=== PATIENT | male | born 1955 | race Caucasian/White ===

== ENCOUNTER 2021-10-20 06:12 | Inpatient (IN) | payer MEDICARE, BC ==
[~2021-10-20] VITALS: Ht 185.4 cm; Wt 91.7 kg
[2021-10-20] VITALS (8 sets, daily range): BP systolic 135–178; BP diastolic 50–68
[~2021-10-20 06:12] MED LIST: AMLO10TA PO; AMLO25TA PO; CRES10TA PO; LISI20TA33 PO; LISI40TA4 PO; PANT20TA6 PO; RAMI1CAP24 PO; TOUJ1.2I SC; TOUJ300I2 SC; [UNRECOGNIZED DRUG - CODE] PO
[2021-10-20] MEDS ORDERED: LR 1,000 ML IV SCH ×2 (06:45→12:25)
[2021-10-20] MEDS ORDERED: ceFAZolin SOD 2 GM in IV 1 EA IV ONE (07:00)
[2021-10-20] MEDS ORDERED: BUPIVACAINE HCL 0.25% 30ML VIAL As Ordered ONE (07:13)
[2021-10-20] MEDS ORDERED: LIDOCAINE 1% SDV 30ML VIAL As Ordered ONE (07:13)
[2021-10-20] MEDS ORDERED: DEXTROSE 50% 50 ML SYRINGE IV PRN (07:30)
[2021-10-20] MEDS ORDERED: ONDANSETRON 4MG 2ML VIAL IV PRN ×2 (07:30→12:25)
[2021-10-20] MEDS ORDERED: ACETAMINOPHEN TAB 650MG DOSE (2X325MG) PO PRN (07:30)
[2021-10-20] MEDS: INSULIN LISPRO (NovoLOG) PER UNIT SC SCH ×3 (07:30→18:28)
[2021-10-20] MEDS ORDERED: GLUCAGON INJ 1MG VIAL SC PRN (07:30)
[2021-10-20] MEDS ORDERED: PERCOCET 5MG/325MG TAB PO PRN (07:30)
[2021-10-20] MEDS ORDERED: GLUCOSE 4GM CHEW TABLET PO PRN (07:30)
[2021-10-20] MEDS ORDERED: HEPARIN SOD (PORCINE) 5000UNITS/ML 1ML VIAL/SYRINGE As Ordered ONE (07:37)
[2021-10-20] MEDS ORDERED: LIDOCAINE 2% INJ 100 MG/5 ML SYRINGE As Ordered ONE (08:08)
[2021-10-20] MEDS ORDERED: ROCURONIUM BROMIDE 50 MG/5 ML VIAL As Ordered ONE ×2 (08:08→08:34)
[2021-10-20] MEDS ORDERED: ONDANSETRON 4MG 2ML VIAL As Ordered ONE (08:08)
[2021-10-20] MEDS ORDERED: MIDAZOLAM INJ 2MG/2ML VIAL (J2250 PER 1MG) As Ordered ONE (08:08)
[2021-10-20] MEDS ORDERED: propofoL 200 MG/20 ML VIAL As Ordered ONE (08:08)
[2021-10-20] MEDS ORDERED: fentaNYL 100 MCG/2 ML INJECTION As Ordered ONE ×2 (08:09→12:13)
[2021-10-20] MEDS ORDERED: HYDROmorphone HCL 2MG/ML 1ML VIAL As Ordered ONE (08:09)
[2021-10-20] MEDS ORDERED: SUGAMMADEX SODIUM 500 MG/5 ML VIAL (BRIDION) As Ordered ONE (08:14)
[2021-10-20] MEDS ORDERED: ACETAMINOPHEN 1000MG 100ML IV BTL (OFIRMEV) (J0131 PER 10MG) As Ordered ONE (08:15)
[2021-10-20] MEDS ORDERED: hydrALAZINE 20MG/ML 1ML VIAL (J0360 PER 20MG) As Ordered ONE (09:16)
[2021-10-20] MEDS ORDERED: ceFAZolin 2 GM/D5W 50 ML IV BAG (J0690 PER 500MG) As Ordered ONE (11:09)
[2021-10-20] MEDS ORDERED: INSULIN LISPRO (NovoLOG) PER UNIT SC PRN (12:25)
[2021-10-20] MEDS ORDERED: METOCLOPRAMIDE INJ 10MG/2ML VIAL (J2765 PER 1) IV PRN (12:25)
[2021-10-20] MEDS ORDERED: oxyCODONE 5MG TAB PO PRN (12:25)
[2021-10-20] MEDS ORDERED: HYDROMORPHONE HCL 0.5 MG/ 0.5 ML SYRINGE (J1170 PER 1) IV PRN (12:25)
[2021-10-20] MEDS ORDERED: hydrALAZINE 20MG/ML 1ML VIAL (J0360 PER 20MG) IV PRN (12:55)
[2021-10-20 13:01] LABS: HEMATOCRIT 47.9 % (42.0-52.0); HEMOGLOBIN 15.9 g/dl (13.5-17.5); MEAN CORPUSCULAR HEMOGLOBIN 32.9 pg (27.0-33.0); MEAN CORPUSCULAR HGB CONC 33.2 g/dl (32.0-36.5); MEAN CORPUSCULAR VOLUME 99.2 fl (80.0-96.0); PLATELET COUNT, AUTOMATED 193 10^3/uL (150-450); RED BLOOD COUNT 4.83 10^6/uL (4.30-6.10); WHITE BLOOD COUNT 12.2 10^3/uL (4.0-10.0)
[2021-10-20] MEDS: fentaNYL 100 MCG/2 ML INJECTION IV PRN ×2 (13:06→13:12)
[2021-10-20 13:32] LABS: CALCIUM LEVEL 8.7 MG/DL (8.8-10.2); CREATININE FOR GFR 2.58 MG/DL (0.70-1.30); GLOMERULAR FILTRATION RATE 26.6 (>49); POTASSIUM SERUM 6.2 MEQ/L (3.5-5.1)
[2021-10-20] MEDS ORDERED: FUROSEMIDE 20MG/2ML VIAL (J1940) As Ordered ONE (13:52)
[2021-10-20] MEDS ORDERED: FUROSEMIDE 100MG/10ML VIAL (J1940) IV ONE (14:00)
[2021-10-20] MEDS: DOCUSATE SODIUM 100MG CAPSULE PO SCH ×2 (15:45→22:59)
[2021-10-20] MEDS: NS 1,000 ML IV SCH (15:45)
[2021-10-20] MEDS: ceFAZolin SOD 1 GM in D5W MINI-BAG PLUS 50 ML IV SCH ×2 (15:52→22:59)
[2021-10-20 17:59] LABS: CALCIUM LEVEL 8.7 MG/DL (8.8-10.2); CREATININE FOR GFR 2.6 MG/DL (0.70-1.30); GLOMERULAR FILTRATION RATE 26.3 (>49); POTASSIUM SERUM 5.5 MEQ/L (3.5-5.1)
[2021-10-20] MEDS ORDERED: INSULIN LISPRO (NovoLOG) PER UNIT SC SCH (21:00)
[2021-10-20] MEDS: HEPARIN SOD (PORCINE) 5000UNITS/ML 1ML VIAL/SYRINGE SC SCH (23:00)
[2021-10-21] MEDS: NS 1,000 ML IV SCH (03:22)
[2021-10-21] MEDS: PERCOCET 5MG/325MG TAB PO PRN ×2 (03:25→09:15)
[2021-10-21 06:00] VITALS: BP 141/61
[2021-10-21 06:33] LABS: HEMATOCRIT 45.4 % (42.0-52.0); MEAN CORPUSCULAR VOLUME 99.8 fl (80.0-96.0); PLATELET COUNT, AUTOMATED 154 10^3/uL (150-450); RED BLOOD COUNT 4.55 10^6/uL (4.30-6.10)
[2021-10-21] MEDS: HEPARIN SOD (PORCINE) 5000UNITS/ML 1ML VIAL/SYRINGE SC SCH ×2 (06:33→14:00)
[2021-10-21 06:52] LABS: CALCIUM LEVEL 8.1 MG/DL (8.8-10.2); CREATININE FOR GFR 2.14 MG/DL (0.70-1.30); POTASSIUM SERUM 4.6 MEQ/L (3.5-5.1)
[2021-10-21] MEDS: INSULIN LISPRO (NovoLOG) PER UNIT SC SCH ×2 (07:30→14:01)
[2021-10-21] MEDS: DOCUSATE SODIUM 100MG CAPSULE PO SCH (08:15)
[2021-10-21] MEDS ORDERED: lisinopriL 40MG TAB PO SCH (09:00)
[2021-10-21] MEDS ORDERED: PANTOPRAZOLE 20 MG TAB PO SCH (09:00)
[2021-10-21 14:00] VITALS: BP 130/76
[2021-10-21] MEDS ORDERED: CIPR-249 PO (14:08)
[2021-10-21] MEDS ORDERED: COLA100C5 PO (14:08)
[2021-10-21] MEDS ORDERED: PERCOCET PO (14:08)
== END 2021-10-21 16:54 | disposition home or self-care (01) | DRG 708 ==
LOC: M OR 06:12 → M MSPAV 14:50
PROVIDERS: ADMIT Urology; ATTEND Urology
PROC: 07BC4ZZ Excision of Pelvis Lymphatic, Percutaneous Endoscopic Approach (ICD-10-PCS; 2021-10-20)
PROC: 8E0W4CZ Robotic Assisted Procedure of Trunk Region, Percutaneous Endoscopic Approach (ICD-10-PCS; 2021-10-20)
PROC: 0VT04ZZ Resection of Prostate, Percutaneous Endoscopic Approach (ICD-10-PCS; principal; 2021-10-20 07:30)
DX: C61 Malignant neoplasm of prostate (principal); E11.9 Type 2 diabetes mellitus without complications; I10 Essential (primary) hypertension; E87.5 Hyperkalemia